=== PATIENT | male | born 1985 | race African-American/Black ===

== ENCOUNTER 2025-03-11 13:58 | Outpatient (CLI) | payer OTHER ==
--- NOTE | 2025-03-11 15:12 | RADIOLOGY REPORT ---
EXAM: DI ANKLE, COMPLETE(3VW MIN) CLINICAL INDICATION: LEFT ANKLE PAIN TECHNIQUE: DI ANKLE, COMPLETE(3VW MIN) COMPARISON: None FINDINGS/IMPRESSION: Avulsion fracture medial malleolus. Ankle mortise intact.
== END 2025-03-11 23:59 | disposition home or self-care (01) ==
LOC: RAD 13:58
PROVIDERS: ATTEND Chiropractor
DX: S82.52XA Displaced fracture of medial malleolus of left tibia, initial encounter for closed fracture (principal); S93.05XA Dislocation of left ankle joint, initial encounter; Y99.9 Unspecified external cause status; M13.80 Other specified arthritis, unspecified site; X58.XXXA Exposure to other specified factors, initial encounter; Y93.89 Activity, other specified; Y92.89 Other specified places as the place of occurrence of the external cause
CPT/HCPCS: 73610